=== PATIENT | male | born 1965 | race Caucasian/White ===

== ENCOUNTER 2018-02-20 14:02 | Emergency (ER) | payer OTHER ==
[2018-02-20] MEDS ORDERED: SODIUM CHLORIDE 0.9% 1000ML 1,000 ML IV STA (14:11)
[2018-02-20] MEDS ORDERED: ONDANSETRON INJ 2 MG/ML 2 ML VIAL IV STA (14:11)
[2018-02-20 14:15] VITALS: TEMP 36.5; O2SAT 98
--- NOTE | 2018-02-20 14:22 | DIAGNOSTIC IMAGING REPORT ---
CHEST ONE VIEW PORTABLE CLINICAL HISTORY: ABDOMINAL PAIN/GI trauma COMPARISON STUDY: No previous studies for comparison. FINDINGS: The bones soft tissues and hemidiaphragms are normal. The cardiomediastinal silhouette is normal. The lungs are clear. The pulmonary vasculature is normal. IMPRESSION: Negative chest. The above report was generated using voice recognition software. It may contain grammatical, syntax or spelling errors. Electronically signed by: Don Alejandro M.D. 02/20/2018 2:21 PM Dictated Date/Time: 02/20/2018 2:21 PM
[2018-02-20 14:23] LABS: BASO % 0.4 %; BASO ABS # 0.05 K/uL (0-0.2); EOS % 1.4 %; EOS ABS # 0.18 K/uL (0-0.5); HEMATOCRIT 39.6 % (42-52); HEMOGLOBIN 13.5 g/dL (14.0-18.0); IG# 0.04 K/uL (0.00-0.02); LYMPH % 11.3 %; LYMPH ABS # 1.44 K/uL (1.2-3.4); MEAN CORPUSCULAR HGB CONC 34.1 g/dl (32-36); MEAN PLATELET VOLUME 9.9 fL (7.4-10.4); MONO % 5.6 %; MONO ABS # 0.72 K/uL (0.11-0.59); NEUT ABS # 10.34 K/uL (1.4-6.5); PLATELET COUNT 223 K/uL (130-400); RED CELL DISTRIBUTION WIDTH CV 12.4 % (11.5-14.5); RED CELL DISTRIBUTION WIDTH SD 41.7 fL (36.4-46.3); WHITE BLOOD COUNT 12.77 K/uL (4.8-10.8)
[2018-02-20 14:34] LABS: ISTAT CREATININE 0.9 mg/dl (0.6-1.3); ISTAT IONIZED CALCIUM 1.07 mmol/l (1.12-1.32); ISTAT POTASSIUM 4.5 mEq/L (3.3-5.0)
[2018-02-20 14:46] VITALS: BP 117/89; PULSE 58; O2SAT 96
[2018-02-20 14:48] LABS: ALBUMIN 4.2 gm/dl (3.4-5.0); ALKALINE PHOSPHATASE 49 U/L (45-117); ALT/SGPT 36 U/L (12-78); BLOOD UREA NITROGEN 18 mg/dl (7-18); CALCIUM 8.7 mg/dl (8.5-10.1); CARBON DIOXIDE 24 mmol/L (21-32); CREATININE 1.04 mg/dl (0.60-1.40); GLUCOSE 116 mg/dl (70-99); LIPASE 182 U/L (73-393); SODIUM 135 mmol/L (136-145); TOTAL PROTEIN 7.2 gm/dl (6.4-8.2)
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
== END 2018-02-20 14:45 | disposition short-term general hospital (02) ==
LOC: EDBD 14:02 → C.EDB 14:02
DX: S20.20XA Contusion of thorax, unspecified, initial encounter (principal); S20.229A Contusion of unspecified back wall of thorax, initial encounter; S39.91XA Unspecified injury of abdomen, initial encounter; V23.4XXA Motorcycle driver injured in collision with car, pick-up truck or van in traffic accident, initial encounter; R03.1 Nonspecific low blood-pressure reading; R06.00 Dyspnea, unspecified; M79.642 Pain in left hand; R11.0 Nausea; Z91.030 Bee allergy status